=== PATIENT | female | born 1980 | race American Indian/Alaskan Native ===

== ENCOUNTER 2018-12-06 10:28 | Emergency (ER) | payer SELFPAY ==
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
[2018-12-06] MEDS ORDERED: TORADOL IV ONE (11:36)
[2018-12-06] MEDS ORDERED: NORMODYNE IV ONE (11:36)
[2018-12-06] MEDS ORDERED: ATIVAN IV ONE (11:37)
[2018-12-06] MEDS ORDERED: APRESOLINE IV ONE (12:08)
[2018-12-06] MEDS ORDERED: APRESOLINE ONE (12:08)
[2018-12-06 12:15] LABS: Hematocrit 42.3 % (30.3-42.9); Hemoglobin 13.9 gm/dl (10.1-14.3); Mean Corpuscular HGB Conc 33 % (30-34); Mean Corpuscular Volume 93 fl (79-97); Red Blood Count 4.57 M/mm3 (3.65-5.03); Red Cell Distribution Width 14.3 % (13.2-15.2)
[2018-12-06 12:27] LABS: Creatine Kinase MB 1.1 ng/mL (0.0-4.0)
[2018-12-06 12:28] LABS: Alanine Aminotransferase 13 units/L (7-56); Albumin 4.5 g/dL (3.9-5); BUN/Creatinine Ratio 12; Blood Urea Nitrogen 6 mg/dL (7-17); Calcium 8.9 mg/dL (8.4-10.2); Hemolysis Index 41
[2018-12-06 12:30] LABS: Partial Thromboplastin Time 24.7 Sec. (24.2-36.6)
[2018-12-06 12:31] LABS: Platelet Count 231 K/mm3 (140-440)
--- NOTE | 2018-12-06 12:33 | Cat Scan Report ---
CT scan without contrast Clinical history: Headache, confusion. FINDINGS: No previous exams are available for comparison. The brain demonstrate appropriate attenuati on. The ventricular system is within normal limits in size and configuration. There is no CT evidence of acute intracranial hemorrhage or significant mass effect. The visualized paranasal sinuses are pn eumatized. All CT scans at this location are performed using the CT dose reduction for ALARA by means of automated exposure control. IMPRESSION: There is no CT evidence of acute intracranial process. Signer Name: Pipo Glez MD Signed: 12/06/2018 12:28 PM Workstation Name: [id number]
[2018-12-06 12:42] LABS: Bilirubin,Direct < 0.2 mg/dL (0-0.2)
[2018-12-06 13:50] LABS: Basophils % (Manual) 0 % (0.0-1.8); Total Cells Counted 100
[2018-12-06 13:51] LABS: Anisocytosis 1+; Macrocytosis 1+; Platelet Estimate Consistent w Auto
[2018-12-06 14:03] LABS: Bacteria,Urine 1+ /HPF (Negative); Bilirubin,Urine NEG (Negative); Blood,Urine NEG (Negative); Color,Urine Yellow (Yellow); Mucus,Urine FEW /HPF; Protein,Urine <15 mg/dL mg/dL (Negative)
[2018-12-06 14:10] LABS: Amphetamine Screen,Urine PRESUMPTIVE NEGATIVE; Benzodiazepines Screen,Urine PRESUMPTIVE NEGATIVE; Cocaine Screen,Urine PRESUMPTIVE NEGATIVE; Methadone Screen,Urine PRESUMPTIVE NEGATIVE; Opiate Screen,Urine PRESUMPTIVE NEGATIVE
[2018-12-06 14:32] LABS: Cannabinoid Screen,Urine PRESUMPTIVE POSITIVE
[2018-12-06 15:07] VITALS: BP 133/69
== END 2018-12-06 15:07 | disposition home or self-care (01) ==
LOC: ED 10:28
DX: N39.0 Urinary tract infection, site not specified (principal); R51 Headache; F17.200 Nicotine dependence, unspecified, uncomplicated; F12.10 Cannabis abuse, uncomplicated; Z90.711 Acquired absence of uterus with remaining cervical stump
CPT/HCPCS: 36415; 70450; 80048; 80076; 80307; 81001; 82550; 82553; 83735; 85007; 85025; 85610; 85730; 87086; 96374; 96375; 99284; J0360; J1885; J2060